=== PATIENT | male | born 1960 | race Caucasian/White ===

== ENCOUNTER → 2019-09-14 | Outpatient (CLI) | payer OTHER | END | disposition home or self-care (01) | LOC: RAH 14:02 | PROVIDERS: ATTEND Internal Medicine Cardiovascular Disease | DX: Z13.6 Encounter for screening for cardiovascular disorders (principal) | CPT/HCPCS: 75571 ==

== ENCOUNTER 2019-11-16 05:50 | Day surgery (SDC) | payer OTHER ==
[2019-11-13 12:49] LABS: BASOPHILS % (AUTO) 0.2 % (0.0-5.0); EOSINOPHILS % (AUTO) 2.4 % (0.0-8.0); HEMATOCRIT 44.7 % (42-54); LYMPHOCYTES % (AUTO) 29.3 % (21.0-51.0); MEAN CORPUSCULAR HEMOGLOBIN 29.5 pg (27.0-33.0); MEAN CORPUSCULAR HGB CONC 32.9 g/dL (32.0-36.0); MEAN CORPUSCULAR VOLUME 89.6 fL (79-99); MONOCYTES % (AUTO) 6.7 % (3.0-13.0); NEUTROPHILS % (AUTO) 61.2 % (40.0-77.0); PLATELET COUNT (AUTO) 233 K/uL (130-400); RED BLOOD CELL COUNT(AUTO) 4.99 MIL/uL (4.50-6.20); RED CELL DISTRIBUTION WIDTH 12.8 % (11.0-15.5); WHITE BLOOD COUNT (AUTO) 12.2 K/uL (4.8-10.8)
[2019-11-13 13:02] LABS: PARTIAL THROMBOPLASTIN TIME 29.2 SEC (26.3-35.5); PROTHROMBIN TIME 10.5 SEC (9.6-11.6)
[2019-11-13 13:08] LABS: POTASSIUM 4.1 mmol/L (3.5-5.1)
[2019-11-13 13:44] VITALS: BP 147/84
--- NOTE | 2019-11-13 20:20 | NUR ---
NOTIFIED DR. DELGADO OF ABNORMAL LABS , AND PT IS NOT CURRENTLY ON A BLOOD THINNER. NO NEW ORDERS OK TO PROCEED.
[2019-11-16] VITALS (18 sets, daily range): BP systolic 95–124; BP diastolic 51–86
[~2019-11-16] VITALS: Ht 185.4 cm; Wt 163.3 kg
[~2019-11-16 05:50] MED LIST: SODIUM CHLORIDE 0.9% 500ML 500 ML IV SCH
[2019-11-16] MEDS ORDERED: LISI40TA4 PO (06:53)
[2019-11-16] MEDS ORDERED: METO-391 PO (06:53)
[2019-11-16] MEDS ORDERED: APIX5TAB PO (06:53)
[2019-11-16] MEDS ORDERED: HYDR25TA PO (06:53)
[2019-11-16] MEDS ORDERED: SOTA80TA PO (06:53)
[2019-11-16] MEDS ORDERED: ATOR20TA65 PO (06:53)
[2019-11-16] MEDS ORDERED: DIPH50CA44 PO (06:53)
[2019-11-16] MEDS ORDERED: MIDAZOLAM HCL 1 MG/ML 2ML VIAL ONE (07:35)
[2019-11-16] MEDS ORDERED: FENTANYL CITRATE PF 50 MCG/1 ML 2ML VIAL ONE (07:35)
--- NOTE | 2019-11-16 08:56 | NUR ---
AWAKE ALERT ORIENTED TO TIME, PERSON, PLACE, SITUATION. DR CLAYTON AT BEDSIDE LET HIM KNOW THAT WILL NEED TO FOLLOW UP WITH DR KINGSTON FOR ABLATION. UNDERSTANDS, FAMILY AWARE, STATES HUNGRY, WILL ORDER BREAKFAST STATES DOES HAVE SOME RIB PAIN ON RIGHT SIDE ON OCCASION FROM CHRONIC COUGH THAT HE HAS HAD FOR OVER A MONTH, A FIB AT A RATE OF 90-95 Addendum: 11/16/19 at 0900 by CESAR GOLD RN RN Amended: Links added.
--- NOTE | 2019-11-16 09:26 | NUR ---
late entry - cardioversion procedure start at 07, time out sheet done no discrepancy, vital signs at 0742 112/71 pulse 94, room air 100 percent and respirations 22, 1st attempt 100 joules at 0749 am pt remained in cardioversion , 2nd attempt at 0752 100 joules shock pt remained in afib, end of procedure time 0752, pt to follow up with doctor. Recover start at 0752, Marga Knight RN to recover pt.
[2019-12-03] MEDS ORDERED: SOTA120T PO (09:35)
== END 2019-11-16 11:13 | disposition home or self-care (01) ==
LOC: DAH 05:50
PROVIDERS: ATTEND Internal Medicine Cardiovascular Disease
DX: I48.19 Other persistent atrial fibrillation (principal); I10 Essential (primary) hypertension; E78.5 Hyperlipidemia, unspecified; G47.30 Sleep apnea, unspecified; E66.01 Morbid (severe) obesity due to excess calories; Z79.01 Long term (current) use of anticoagulants; Z98.890 Other specified postprocedural states; Z79.899 Other long term (current) drug therapy; Z68.42 Body mass index [BMI] 45.0-49.9, adult; Z82.49 Family history of ischemic heart disease and other diseases of the circulatory system
CPT/HCPCS: 36415; 80048; 85025; 85610; 85730; 92960; 93005; A4216; A4221; A4222; A4223 ×3; A4606; A4663; J2250; J3010; 99152

== ENCOUNTER 2019-12-08 06:12 | Day surgery (SDC) | payer OTHER ==
[2019-12-03 09:00] LABS: BASOPHILS % (AUTO) 0.3 % (0.0-5.0); HEMATOCRIT 45.6 % (42-54); LYMPHOCYTES % (AUTO) 32.2 % (21.0-51.0); MEAN CORPUSCULAR HGB CONC 32.5 g/dL (32.0-36.0); MEAN CORPUSCULAR VOLUME 89.2 fL (79-99); MONOCYTES % (AUTO) 6.8 % (3.0-13.0); NEUTROPHILS % (AUTO) 58.3 % (40.0-77.0); PLATELET COUNT (AUTO) 239 K/uL (130-400); RED BLOOD CELL COUNT(AUTO) 5.11 MIL/uL (4.50-6.20); RED CELL DISTRIBUTION WIDTH 12.7 % (11.0-15.5); WHITE BLOOD COUNT (AUTO) 11.1 K/uL (4.8-10.8)
[2019-12-03 09:13] LABS: CREATININE 0.9 mg/dL (0.5-1.5); POTASSIUM 4.2 mmol/L (3.5-5.1)
[2019-12-03 09:30] VITALS: BP_SYST 135; BP_SYST 179; BP_DIAS 80; BP_DIAS 85
--- NOTE | 2019-12-07 12:14 | NUR ---
LABS ABNORMAL WBC REPORTED TO DR. KINGSTON. MESSAGE LEFT WITH GIACOMO, NO FURTHER ORDERS GIVEN
[2019-12-08] VITALS (13 sets, daily range): BP systolic 93–146; BP diastolic 70–92
[~2019-12-08] VITALS: Ht 185.4 cm; Wt 164.5 kg
[~2019-12-08 06:12] MED LIST changes: +APIX5TAB PO; +ATOR20TA65 PO; +DIPH50CA44 PO; +HYDR25TA PO; +LISI40TA4 PO; +METO-391 PO; +SODIUM CHLORIDE 0.9% 1000ML 1,000 ML IV SCH; -SODIUM CHLORIDE 0.9% 500ML 500 ML IV SCH; +SOTA120T PO; +SOTA80TA PO
[2019-12-08] MEDS ORDERED: LIDOCAINE PF 2% 5ML ABBOJECT ONE (08:51)
[2019-12-08] MEDS ORDERED: PROPOFOL 10 MG/ML 20ML VIAL IV ONE (08:51)
== END 2019-12-08 10:45 | disposition home or self-care (01) ==
LOC: DAH 06:12
PROVIDERS: ATTEND Internal Medicine Cardiovascular Disease
DX: I48.0 Paroxysmal atrial fibrillation (principal); I48.19 Other persistent atrial fibrillation; I10 Essential (primary) hypertension; E78.5 Hyperlipidemia, unspecified; G47.30 Sleep apnea, unspecified; E66.01 Morbid (severe) obesity due to excess calories; Z98.890 Other specified postprocedural states; Z79.01 Long term (current) use of anticoagulants; Z79.899 Other long term (current) drug therapy; Z82.49 Family history of ischemic heart disease and other diseases of the circulatory system; Z68.42 Body mass index [BMI] 45.0-49.9, adult
CPT/HCPCS: 36415; 80048; 85025; 92960; 93005 ×2; A4215; A4216; A4222; A4223 ×3; A4606; A4663; J2001; J2704

== ENCOUNTER 2020-06-02 05:50 | Day surgery (SDC) | payer OTHER ==
[2020-05-31 15:46] LABS: BASOPHILS % (AUTO) 0.2 % (0.0-5.0); EOSINOPHILS % (AUTO) 2.3 % (0.0-8.0); HEMATOCRIT 43.5 % (42-54); LYMPHOCYTES % (AUTO) 36.2 % (21.0-51.0); MEAN CORPUSCULAR HEMOGLOBIN 29.5 pg (27.0-33.0); MEAN CORPUSCULAR HGB CONC 32.6 g/dL (32.0-36.0); MEAN CORPUSCULAR VOLUME 90.2 fL (79-99); MONOCYTES % (AUTO) 6.3 % (3.0-13.0); NEUTROPHILS % (AUTO) 54.8 % (40.0-77.0); PLATELET COUNT (AUTO) 236 K/uL (130-400); RED BLOOD CELL COUNT(AUTO) 4.82 MIL/uL (4.50-6.20); RED CELL DISTRIBUTION WIDTH 13.1 % (11.0-15.5); WHITE BLOOD COUNT (AUTO) 9.9 K/uL (4.8-10.8)
[2020-05-31 15:58] LABS: CREATININE 1.2 mg/dL (0.5-1.5); POTASSIUM 3.8 mmol/L (3.5-5.1)
[2020-05-31 16:02] LABS: INR 0.95 (0.85-1.15); PROTHROMBIN TIME 10.3 SEC (9.6-11.6)
[2020-06-01 08:56] VITALS: BP 149/72
[~2020-06-02] VITALS: Ht 182.9 cm; Wt 166.1 kg
[~2020-06-02 05:50] MED LIST changes: -DIPH50CA44 PO; +PROP325C5 PO; -SODIUM CHLORIDE 0.9% 1000ML 1,000 ML IV SCH; +SODIUM CHLORIDE 0.9% 500ML 500 ML IV SCH; -SOTA120T PO; -SOTA80TA PO; +magnesium PO
--- NOTE | 2020-06-02 06:15 | NUR ---
PT PT HERE FOR PROCEDURE. DENIES ANY PAIN, SOB AT THIS TIME. EKG RHYTHM IS AFIB
[2020-06-02] MEDS ORDERED: SODIUM CHLORIDE 0.9% 1000ML 1,000 ML IV ONE (06:45)
[2020-06-02 07:40] VITALS: BP 141/78
--- NOTE | 2020-06-02 08:00 | NUR ---
DR. VASHTI KINGSTON AND WOO, DERRICK BUILDER HERE FOR CARDIOVERSION. TIME OUT PERFORMED. 1 SHOCK ADMINISTERED AT 200 JOULES. UNSUCCESSFUL. SECOND SHOCK ADMINISTERED AT 360 JOULES. SUCCESSFUL. PT TOLERATED PROCEDURE WELL.
[2020-06-02] MEDS ORDERED: SUCCINYLCHOLINE CHLORIDE 20 MG/ML 10 ML VIAL ONE (08:02)
[2020-06-02] MEDS ORDERED: PROPOFOL 10 MG/ML 20ML VIAL IV ONE (08:02)
[2020-06-02] MEDS ORDERED: LIDOCAINE PF 2% 5ML ABBOJECT ONE (08:02)
[2020-06-02] MEDS ORDERED: PHENYLEPHRINE HCL 10 MG/ML 1ML VIAL IV ONE (08:10)
[2020-06-02 08:51] VITALS: BP 112/68
[2020-06-02 09:15] VITALS: BP 117/77
--- NOTE | 2020-06-02 09:25 | NUR ---
DC PT DISCHARGED VIA WHEELCHAIR TO DAUGHTER.
== END 2020-06-02 09:25 | disposition home or self-care (01) ==
LOC: DAH 05:50
PROVIDERS: ATTEND Internal Medicine Cardiovascular Disease
DX: I48.0 Paroxysmal atrial fibrillation (principal); I49.3 Ventricular premature depolarization; G47.30 Sleep apnea, unspecified; I10 Essential (primary) hypertension; E78.5 Hyperlipidemia, unspecified; Z79.01 Long term (current) use of anticoagulants; Z11.59 Encounter for screening for other viral diseases; Z79.02 Long term (current) use of antithrombotics/antiplatelets
CPT/HCPCS: 36415; 80048; 85025; 85610; 85730; 87426; 92960; 93005; A4215; A4216; A4221; A4222; A4223 ×3; A4606; A4663; J2001; J2370; J2704; J7030; U0003; J0330

== ENCOUNTER 2020-08-08 06:10 | Day surgery (SDC) | payer OTHER ==
[2020-08-04 09:59] VITALS: BP 162/73
[2020-08-04 16:32] LABS: BASOPHILS % (AUTO) 0.2 % (0.0-5.0); EOSINOPHILS % (AUTO) 3.5 % (0.0-8.0); HEMATOCRIT 43.2 % (42-54); MEAN CORPUSCULAR HEMOGLOBIN 29.2 pg (27.0-33.0); MEAN CORPUSCULAR HGB CONC 33.1 g/dL (32.0-36.0); MEAN CORPUSCULAR VOLUME 88.3 fL (79-99); PLATELET COUNT (AUTO) 243 K/uL (130-400); RED BLOOD CELL COUNT(AUTO) 4.89 MIL/uL (4.50-6.20); RED CELL DISTRIBUTION WIDTH 12.8 % (11.0-15.5); WHITE BLOOD COUNT (AUTO) 10.1 K/uL (4.8-10.8)
[2020-08-04 16:41] LABS: POTASSIUM 3.8 mmol/L (3.5-5.1)
[~2020-08-08] VITALS: Ht 188 cm; Wt 168.7 kg
[2020-08-08] VITALS (15 sets, daily range): BP systolic 95–154; BP diastolic 50–84
[~2020-08-08 06:10] MED LIST changes: -SODIUM CHLORIDE 0.9% 500ML 500 ML IV SCH
[2020-08-08] MEDS ORDERED: SODIUM CHLORIDE 0.9% 1000ML 1,000 ML IV ONE (07:12)
[2020-08-08] MEDS ORDERED: ALLO100T PO (07:43)
[2020-08-08] MEDS ORDERED: PROPOFOL 10 MG/ML 20ML VIAL IV ONE (09:30)
--- NOTE | 2020-08-08 09:38 | NUR ---
SEDATION: DR. JARVIS HERE AND STARTED ANESTHESIA WITH PROPOFOL.
--- NOTE | 2020-08-08 09:45 | NUR ---
CARDIOVERSION: DR. KINGSTON STARTED CARDIOVERSION AT 200 EMILIA. PT REMAINED AT A- FIB.
--- NOTE | 2020-08-08 09:47 | NUR ---
SEDATION: DR. JARVIS - ANESTHESIOLOGIST CONTINUES MEDICATING WITH PROPOFOL.
--- NOTE | 2020-08-08 09:48 | NUR ---
CARDIOVERSION: DR. KINGSTON CONTINUED CARDIOVERSION WITH 360 EMILIA. PT AT SINUS RHYTHM.
== END 2020-08-08 11:00 | disposition home or self-care (01) ==
LOC: DAH 06:10
PROVIDERS: ATTEND Internal Medicine Cardiovascular Disease
DX: I48.0 Paroxysmal atrial fibrillation (principal); Z20.828 Contact with and (suspected) exposure to other viral communicable diseases
CPT/HCPCS: 36415; 80048; 85025; 92960; 93005; A4215; A4216; A4221; A4222; A4223 ×2; A4606; A4615; A4663; C9803; J2704; J7030; U0003

== ENCOUNTER → 2020-08-24 | Outpatient (CLI) | payer OTHER ==
[~2020-08-24] MED LIST changes: +ALLO100T PO; +IOHEXOL 350 MG/ML 100ML INFUS..BTL IV ONE; +IOHEXOL-350 50ML VIAL IV ONE; -magnesium PO
== END | disposition home or self-care (01) ==
LOC: RAH 06:59
PROVIDERS: ATTEND Internal Medicine Cardiovascular Disease
DX: I48.0 Paroxysmal atrial fibrillation (principal); R18.8 Other ascites; K76.0 Fatty (change of) liver, not elsewhere classified
CPT/HCPCS: 71275; Q9967 ×2

== ENCOUNTER 2020-09-01 06:59 | Observation (INO) | payer OTHER ==
[2020-08-29 11:40] LABS: BASOPHILS % (AUTO) 0.3 % (0.0-5.0); EOSINOPHILS % (AUTO) 3.1 % (0.0-8.0); HEMATOCRIT 44.5 % (42-54); LYMPHOCYTES % (AUTO) 36.8 % (21.0-51.0); MEAN CORPUSCULAR HEMOGLOBIN 29.1 pg (27.0-33.0); MEAN CORPUSCULAR HGB CONC 32.8 g/dL (32.0-36.0); MEAN CORPUSCULAR VOLUME 88.8 fL (79-99); NEUTROPHILS % (AUTO) 52.4 % (40.0-77.0); PLATELET COUNT (AUTO) 219 K/uL (130-400); RED BLOOD CELL COUNT(AUTO) 5.01 MIL/uL (4.50-6.20); RED CELL DISTRIBUTION WIDTH 12.6 % (11.0-15.5); WHITE BLOOD COUNT (AUTO) 9.3 K/uL (4.8-10.8)
[2020-08-29 11:49] LABS: POTASSIUM 3.7 mmol/L (3.5-5.1)
[2020-08-29 12:22] LABS: INR 0.97 (0.85-1.15); PARTIAL THROMBOPLASTIN TIME 28.8 SEC (26.3-35.5); PROTHROMBIN TIME 10.5 SEC (9.6-11.6)
[2020-08-31 10:00] VITALS: BP 156/76
[~2020-09-01] VITALS: Ht 188 cm; Wt 166.8 kg
[2020-09-01] VITALS (22 sets, daily range): BP systolic 99–136; BP diastolic 44–78
[~2020-09-01 06:59] MED LIST changes: -IOHEXOL 350 MG/ML 100ML INFUS..BTL IV ONE; -IOHEXOL-350 50ML VIAL IV ONE
[2020-09-01] MEDS ORDERED: SODIUM CHLORIDE 0.9% 1000ML 1,000 ML IV ONE (07:53)
--- NOTE | 2020-09-01 08:29 | NUR ---
REDNESS NOTED LOWER ABDOMEN FOLD AND BILATERAL GROIN, SKIN INTACT Addendum: 09/01/20 at 0830 by MIKE MARTI RN RN Amended: Links added.
[2020-09-01] MEDS ORDERED: HEPARIN SODIUM 1000UNIT/ML 10ML VIAL ONE ×2 (08:45→12:37)
[2020-09-01] MEDS ORDERED: IODIXANOL 320 MG/ML 100 ML VIAL ONE (08:45)
[2020-09-01] MEDS ORDERED: LIDOCAINE HCL 2% 20ML ONE (08:45)
[2020-09-01] MEDS ORDERED: METOPROLOL TARTRATE 1 MG/ML 5ML VIAL IV ONE (09:02)
[2020-09-01] MEDS ORDERED: MIDAZOLAM HCL 1 MG/ML 2ML VIAL ONE ×2 (09:03→09:15)
[2020-09-01] MEDS ORDERED: ONDANSETRON HCL 4 MG/2 ML VIAL ONE (09:15)
[2020-09-01] MEDS ORDERED: LIDOCAINE PF 2% 5ML ABBOJECT ONE (09:15)
[2020-09-01] MEDS ORDERED: DEXAMETHASONE SOD PHOSPHATE 10MG/ML 1ML VIAL ONE (09:15)
[2020-09-01] MEDS ORDERED: PROPOFOL 10 MG/ML 20ML VIAL IV ONE (09:15)
[2020-09-01] MEDS ORDERED: FENTANYL CITRATE PF 50 MCG/1 ML 2ML VIAL ONE ×2 (09:16→12:52)
[2020-09-01] MEDS ORDERED: ROCURONIUM 10MG/1ML SYR 10 MG/ML ML ONE (09:16)
[2020-09-01] MEDS ORDERED: EPHEDRINE SULFATE 50 MG/ML AMPULE ONE (09:16)
[2020-09-01] MEDS ORDERED: PHENYLEPHRINE HCL 10 MG/ML 1ML VIAL IV ONE ×2 (09:16→12:34)
[2020-09-01] MEDS ORDERED: ISOPROTERENOL HCL 0.2 MG/ML AMP/VIAL/BAG ONE (12:38)
[2020-09-01 13:21] LABS: ABG BASE EXCESS -3.2 mmol/L (-2.0-3.0); ABG HCO3 24.4 mmol/L (21.0-28.0); ABG OXYGEN SATURATION 97.3 % (95.0-99.0); ABG PCO2 54 mmHg (35-48)
[2020-09-01 13:24] LABS: ABG HCO3 24.4 mmol/L (21.0-28.0); ABG OXYGEN SATURATION 97.4 % (95.0-99.0); ABG PCO2 53 mmHg (35-48)
[2020-09-01 13:29] LABS: ABG BASE EXCESS -3.7 mmol/L (-2.0-3.0); ABG HCO3 23.8 mmol/L (21.0-28.0); ABG OXYGEN SATURATION 97.8 % (95.0-99.0); ABG PCO2 52 mmHg (35-48)
[2020-09-01] MEDS ORDERED: PROTAMINE SULFATE 10 MG/ML 25ML VIAL IV ONE (13:46)
[2020-09-01] MEDS ORDERED: GLYCOPYRROLATE 1 MG/5 ML SYRINGE ONE (14:28)
[2020-09-01] MEDS ORDERED: NEOSTIGMINE 5MG/5ML SYR IV ONE (14:28)
[2020-09-01] MEDS ORDERED: MORPHINE SULFATE 2 MG/ML 1ML SYG ONE (16:20)
[2020-09-01] MEDS ORDERED: MORPHINE SULFATE 2 MG/ML 1ML SYG IVP ONE (16:30)
[2020-09-01] MEDS: APIXABAN 5 MG TABLET PO SCH (22:06)
[2020-09-01] MEDS: METOPROLOL SUCCINATE 50 MG TAB.SR.24H PO SCH (22:06)
[2020-09-01] MEDS: PROPAFENONE HCL 425 MG PO SCH (22:07)
[2020-09-02] VITALS: BP 107/47
[2020-09-02 04:00] VITALS: BP 114/57
[2020-09-02 04:52] LABS: HEMATOCRIT 43.2 % (42-54); MEAN CORPUSCULAR HEMOGLOBIN 29.3 pg (27.0-33.0); MEAN CORPUSCULAR HGB CONC 32.4 g/dL (32.0-36.0); MEAN CORPUSCULAR VOLUME 90.4 fL (79-99); RED BLOOD CELL COUNT(AUTO) 4.78 MIL/uL (4.50-6.20); RED CELL DISTRIBUTION WIDTH 12.6 % (11.0-15.5); WHITE BLOOD COUNT (AUTO) 15.1 K/uL (4.8-10.8)
[2020-09-02 05:08] LABS: ALBUMIN 3.2 g/dL (3.5-5.0); BILIRUBIN,TOTAL 0.7 mg/dL (0.2-1.0); CREATININE 1.5 mg/dL (0.5-1.5); POTASSIUM 4.6 mmol/L (3.5-5.1); TOTAL PROTEIN, SERUM 6.2 g/dL (6.0-8.3)
[2020-09-02] MEDS: METOPROLOL SUCCINATE 50 MG TAB.SR.24H PO SCH (07:59)
[2020-09-02] MEDS: APIXABAN 5 MG TABLET PO SCH (07:59)
[2020-09-02] MEDS: PROPAFENONE HCL 425 MG PO SCH (08:05)
[2020-09-02 08:11] VITALS: BP 130/58
[2020-09-02] MEDS ORDERED: HYDROCHLOROTHIAZIDE 25 MG TABLET PO SCH (09:00)
[2020-09-02] MEDS ORDERED: LISINOPRIL 40 MG TABLET PO SCH (09:00)
[2020-09-02] MEDS ORDERED: ATORVASTATIN CALCIUM 20 MG TABLET PO SCH (09:00)
[2020-09-02] MEDS ORDERED: SUCRALFATE 1 GM TABLET PO SCH (10:45)
[2020-09-02] MEDS ORDERED: PANTOPRAZOLE SODIUM 40 MG TABLET.DR PO SCH (10:45)
[2020-09-02] MEDS ORDERED: PANT40TA55 PO (10:47)
[2020-09-02] MEDS ORDERED: CARAL PO (10:47)
[2020-09-02 11:59] VITALS: BP 121/54
--- NOTE | 2020-09-02 12:07 | NUR ---
Discharge Patient given discharge instructions regarding follow ups, prescriptions, and medications to continue taking. Patient verbalized understanding regarding plan of care all questions answered.
== END 2020-09-02 12:15 | disposition home or self-care (01) ==
LOC: DAH 06:59 → DAHIP 07:00 → DAH 07:00 → 4CH 16:16
PROVIDERS: ADMIT Internal Medicine; ATTEND Internal Medicine
DX: I48.0 Paroxysmal atrial fibrillation (principal); Z20.828 Contact with and (suspected) exposure to other viral communicable diseases; I25.10 Atherosclerotic heart disease of native coronary artery without angina pectoris; I10 Essential (primary) hypertension; E78.5 Hyperlipidemia, unspecified; E66.01 Morbid (severe) obesity due to excess calories; Z87.891 Personal history of nicotine dependence; Z96.659 Presence of unspecified artificial knee joint; Z79.01 Long term (current) use of anticoagulants; Z79.899 Other long term (current) drug therapy; Z68.42 Body mass index [BMI] 45.0-49.9, adult
CPT/HCPCS: 36415 ×2; 80048; 80053; 82435; 82803; 82947; 83605; 84132; 84295; 85018; 85025; 85027; 85610; 85730; 93306; 93308; 93356; 93613; 93622; 93656; 93662; 96360; 96361 ×2; A4215 ×2; A4216; A4221; A4222; A4223 ×3; A4344; A4606; A4649 ×2; A4663; C1730; C1731; C1732; C1893 ×2; C1894 ×4; C9803; G0378 ×21; J1100; J1644 ×3; J2001; J2250 ×2; J2370 ×2; J2405; J2704; J2710; J2720; J3010 ×2; J3490 ×5; J7030; U0003; 93005; Q9967

== ENCOUNTER 2021-10-27 09:03 | Day surgery (SDC) | payer OTHER ==
[2021-10-23 13:58] LABS: BASOPHILS % (AUTO) 0.3 % (0.0-5.0); EOSINOPHILS % (AUTO) 2.5 % (0.0-8.0); LYMPHOCYTES % (AUTO) 31.8 % (21.0-51.0); MEAN CORPUSCULAR HEMOGLOBIN 29.1 pg (27.0-33.0); MEAN CORPUSCULAR HGB CONC 33.6 g/dL (32.0-36.0); MEAN CORPUSCULAR VOLUME 86.6 fL (79-99); MONOCYTES % (AUTO) 6.2 % (3.0-13.0); NEUTROPHILS % (AUTO) 58.9 % (40.0-77.0); PLATELET COUNT (AUTO) 219 K/uL (130-400); RED BLOOD CELL COUNT(AUTO) 4.85 MIL/uL (4.50-6.20); RED CELL DISTRIBUTION WIDTH 12.3 % (11.0-15.5); WHITE BLOOD COUNT (AUTO) 10.9 K/uL (4.8-10.8)
[2021-10-23 14:11] LABS: INR 1.05 (0.85-1.15); PROTHROMBIN TIME 11.4 SEC (9.6-11.6)
[2021-10-23 14:12] LABS: PARTIAL THROMBOPLASTIN TIME 30.9 SEC (26.3-35.5)
[2021-10-23 14:28] LABS: CREATININE 1.1 mg/dL (0.5-1.5); MAGNESIUM 1.4 mg/dL (1.80-2.40); POTASSIUM 3.4 mmol/L (3.5-5.1); THYROID STIMULATING HORMONE 2.86 uIU/mL (0.36-3.74)
[2021-10-26 10:02] VITALS: BP 156/78
[~2021-10-27] VITALS: Ht 188 cm; Wt 161.8 kg
[~2021-10-27 09:03] MED LIST changes: +0.9% NACL 500ML IV.SOLN 500 ML IV SCH; -ALLO100T PO; +AMLO1CAP87 PO; -ATOR20TA65 PO; +ATOR40TA69 PO; -LISI40TA4 PO; +LISI40TA9 PO; +METO-409 PO; +SEMA1PEN3 SQ; +TOPIRAMATE PO
[2021-10-27 09:30] VITALS: BP 143/71
[2021-10-27] MEDS ORDERED: LIDOCAINE PF 100MG/5ML (2%) SYRINGE 5ML ONE (12:18)
[2021-10-27] MEDS ORDERED: PHENYLEPHRINE HCL 10 MG/ML 1ML VIAL IV ONE (12:18)
[2021-10-27] MEDS ORDERED: PROPOFOL 10 MG/ML 20ML VIAL IV ONE (12:18)
[2021-10-27 13:15] VITALS: BP 128/72
[2021-10-27] MEDS ORDERED: 0.9%NACL 1000ML 1,000 ML IV ONE (15:17)
== END 2021-10-27 13:40 | disposition home or self-care (01) ==
LOC: SUH 09:03 → DAH 09:03 → SUH 13:40
PROVIDERS: ATTEND Internal Medicine Cardiovascular Disease
DX: I48.19 Other persistent atrial fibrillation (principal); I10 Essential (primary) hypertension; I25.10 Atherosclerotic heart disease of native coronary artery without angina pectoris; E78.5 Hyperlipidemia, unspecified; Z79.01 Long term (current) use of anticoagulants; Z79.82 Long term (current) use of aspirin; Z79.899 Other long term (current) drug therapy
CPT/HCPCS: 36415 ×2; 80048; 82948; 83735; 84132; 84443; 85025; 85610; 85730; 92960; 93005; A4215; A4216; A4221; A4222; A4223 ×3; A4663; J2001; J2370; J2704; J7030; J7040

== ENCOUNTER 2021-12-18 06:49 | Day surgery (SDC) | payer OTHER ==
[2021-12-14 13:30] LABS: BASOPHILS % (AUTO) 0.3 % (0.0-5.0); EOSINOPHILS % (AUTO) 1.6 % (0.0-8.0); HEMATOCRIT 47.7 % (42-54); LYMPHOCYTES % (AUTO) 35.5 % (21.0-51.0); MEAN CORPUSCULAR HEMOGLOBIN 29.4 pg (27.0-33.0); MEAN CORPUSCULAR HGB CONC 33.3 g/dL (32.0-36.0); MEAN CORPUSCULAR VOLUME 88.2 fL (79-99); MONOCYTES % (AUTO) 7.4 % (3.0-13.0); PLATELET COUNT (AUTO) 274 K/uL (130-400); RED BLOOD CELL COUNT(AUTO) 5.41 MIL/uL (4.50-6.20); RED CELL DISTRIBUTION WIDTH 12.4 % (11.0-15.5); WHITE BLOOD COUNT (AUTO) 12.2 K/uL (4.8-10.8)
[2021-12-14 13:42] LABS: INR 1.1 (0.85-1.15); PROTHROMBIN TIME 11.9 SEC (9.6-11.6)
[2021-12-14 13:44] LABS: PARTIAL THROMBOPLASTIN TIME 32.2 SEC (26.3-35.5)
[2021-12-14 13:46] LABS: CREATININE 1.3 mg/dL (0.5-1.5); POTASSIUM 3.5 mmol/L (3.5-5.1)
[2021-12-15 12:41] VITALS: BP 141/69
[~2021-12-18] VITALS: Ht 182.9 cm; Wt 158.7 kg
[2021-12-18] VITALS (14 sets, daily range): BP systolic 135–169; BP diastolic 73–93
[~2021-12-18 06:49] MED LIST changes: -0.9% NACL 500ML IV.SOLN 500 ML IV SCH; -METO-391 PO; -PROP325C5 PO
[2021-12-18 07:23] LABS: BASOPHILS % (AUTO) 0.3 % (0.0-5.0); EOSINOPHILS % (AUTO) 2.4 % (0.0-8.0); HEMATOCRIT 44.5 % (42-54); MEAN CORPUSCULAR HEMOGLOBIN 28.8 pg (27.0-33.0); MEAN CORPUSCULAR VOLUME 87.3 fL (79-99); MONOCYTES % (AUTO) 5.2 % (3.0-13.0); NEUTROPHILS % (AUTO) 52.8 % (40.0-77.0); PLATELET COUNT (AUTO) 222 K/uL (130-400); RED CELL DISTRIBUTION WIDTH 12.2 % (11.0-15.5); WHITE BLOOD COUNT (AUTO) 10.5 K/uL (4.8-10.8)
[2021-12-18] MEDS ORDERED: 0.9%NACL 1000ML 1,000 ML IV SCH (08:00)
[2021-12-18] MEDS ORDERED: PROPOFOL 10 MG/ML 20ML VIAL IV ONE (08:03)
[2021-12-18] MEDS ORDERED: SUCCINYLCHOLINE 200MG/10ML SYR ONE (08:03)
== END 2021-12-18 10:01 | disposition home or self-care (01) ==
LOC: CLH 06:49 → DAH 06:49 → CLH 10:01
PROVIDERS: ATTEND Internal Medicine Cardiovascular Disease
DX: I48.19 Other persistent atrial fibrillation (principal); Z20.822 Contact with and (suspected) exposure to COVID-19; I10 Essential (primary) hypertension; E11.9 Type 2 diabetes mellitus without complications; E66.01 Morbid (severe) obesity due to excess calories; G47.33 Obstructive sleep apnea (adult) (pediatric); E78.5 Hyperlipidemia, unspecified; Z98.890 Other specified postprocedural states; Z79.82 Long term (current) use of aspirin; Z87.891 Personal history of nicotine dependence; Z68.42 Body mass index [BMI] 45.0-49.9, adult; Z79.01 Long term (current) use of anticoagulants; Z79.899 Other long term (current) drug therapy
CPT/HCPCS: 36415 ×2; 71045; 80048; 82948; 85025 ×2; 85610; 85730; 87635; 92960; 93005 ×2; A4215; A4216; A4221; A4222; A4223 ×3; A4606; A4663; A7002; C9803; J0330; J2704; J7030 ×2

== ENCOUNTER 2022-05-17 08:13 | Observation (INO) | payer OTHER ==
[2022-05-15 15:33] LABS: BASOPHILS % (AUTO) 0.2 % (0.0-5.0); EOSINOPHILS % (AUTO) 1.2 % (0.0-8.0); HEMATOCRIT 45.8 % (42-54); LYMPHOCYTES % (AUTO) 36.5 % (21.0-51.0); MEAN CORPUSCULAR HEMOGLOBIN 28.7 pg (27.0-33.0); MEAN CORPUSCULAR HGB CONC 33.2 g/dL (32.0-36.0); MEAN CORPUSCULAR VOLUME 86.6 fL (79-99); MONOCYTES % (AUTO) 5.5 % (3.0-13.0); NEUTROPHILS % (AUTO) 56.2 % (40.0-77.0); PLATELET COUNT (AUTO) 233 K/uL (130-400); RED BLOOD CELL COUNT(AUTO) 5.29 MIL/uL (4.50-6.20); RED CELL DISTRIBUTION WIDTH 12.2 % (11.0-15.5); WHITE BLOOD COUNT (AUTO) 12.8 K/uL (4.8-10.8)
[2022-05-15 15:41] LABS: CREATININE 0.9 mg/dL (0.5-1.5); POTASSIUM 3.6 mmol/L (3.5-5.1)
[2022-05-15 15:42] LABS: INR 0.96 (0.85-1.15); PROTHROMBIN TIME 10.5 SEC (9.6-11.6)
[2022-05-16 09:39] VITALS: BP 146/72
[2022-05-17] VITALS (25 sets, daily range): BP systolic 133–194; BP diastolic 64–99
[~2022-05-17] VITALS: Ht 185.4 cm; Wt 156.0 kg
[~2022-05-17 08:13] MED LIST changes: +0.9%NACL 1000ML 1,000 ML IV SCH; +AMLO-257 PO; -AMLO1CAP87 PO; -ATOR40TA69 PO; +ATOR40TA71 PO; +DRON400T7 PO; -HYDR25TA PO; -METO-409 PO; +METO50TA18 PO; +OMEP20TA20 PO; +TOPI25TA48 PO; -TOPIRAMATE PO
[2022-05-17 08:33] LABS: BASOPHILS % (AUTO) 0.2 % (0.0-5.0); EOSINOPHILS % (AUTO) 1.9 % (0.0-8.0); HEMATOCRIT 45.8 % (42-54); LYMPHOCYTES % (AUTO) 40.1 % (21.0-51.0); MEAN CORPUSCULAR HEMOGLOBIN 29.7 pg (27.0-33.0); MEAN CORPUSCULAR HGB CONC 34.1 g/dL (32.0-36.0); MEAN CORPUSCULAR VOLUME 87.2 fL (79-99); MONOCYTES % (AUTO) 8.1 % (3.0-13.0); NEUTROPHILS % (AUTO) 49.4 % (40.0-77.0); PLATELET COUNT (AUTO) 238 K/uL (130-400); RED BLOOD CELL COUNT(AUTO) 5.25 MIL/uL (4.50-6.20); RED CELL DISTRIBUTION WIDTH 12.2 % (11.0-15.5); WHITE BLOOD COUNT (AUTO) 12.1 K/uL (4.8-10.8)
[2022-05-17] MEDS ORDERED: HEPARIN 10,000 UNIT/10ML (1,000 UNIT/ML) VIAL ONE ×2 (11:11→13:29)
[2022-05-17] MEDS ORDERED: LIDOCAINE HCL 400MG/20ML VIAL ONE ×2 (11:12)
[2022-05-17] MEDS ORDERED: PROPOFOL 10 MG/ML 20ML VIAL IV ONE (11:39)
[2022-05-17] MEDS ORDERED: FENTANYL CITRATE PF 50 MCG/1 ML 2ML VIAL ONE ×2 (11:40→14:45)
[2022-05-17] MEDS ORDERED: ROCURONIUM 10MG/1ML SYR 10 MG/ML ML ONE (11:42)
[2022-05-17] MEDS ORDERED: EPHEDRINE SULFATE 50 MG/ML AMPULE ONE (11:42)
[2022-05-17] MEDS ORDERED: MIDAZOLAM HCL 1 MG/ML 2ML VIAL ONE (11:59)
[2022-05-17] MEDS ORDERED: ISOPROTERENOL HCL 0.2 MG/ML AMP/VIAL/BAG ONE (15:01)
[2022-05-17] MEDS ORDERED: PROTAMINE SULFATE 10 MG/ML 25ML VIAL IV ONE (15:35)
[2022-05-17] MEDS ORDERED: ONDANSETRON 4MG INJ ONE (15:55)
[2022-05-17] MEDS ORDERED: NEOSTIGMINE 5MG/5ML SYR IV ONE (16:31)
[2022-05-17] MEDS ORDERED: TRAMADOL HCL 50 MG TABLET PO PRN (18:00)
[2022-05-17] MEDS ORDERED: ACETAMINOPHEN 500 MG TABLET PO PRN (18:00)
[2022-05-17] MEDS ORDERED: ACETAMINOPHEN 325 MG TAB ONE (18:06)
[2022-05-17] MEDS ORDERED: AMLODIPINE 5 MG TAB PO SCH (21:00)
[2022-05-17] MEDS ORDERED: ATORVASTATIN 40 MG TABLET PO SCH (21:00)
[2022-05-17] MEDS: METOPROLOL TARTRATE 50 MG TAB PO SCH (21:30)
[2022-05-17] MEDS: DRONEDARONE HYDROCHLORIDE 400 MG TABLET PO SCH (21:31)
[2022-05-17] MEDS: SUCRALFATE 1 GM TABLET PO SCH (21:31)
[2022-05-17] MEDS: APIXABAN 5 MG TABLET PO SCH (21:31)
[2022-05-17] MEDS: TOPIRAMATE 25 MG TABLET PO SCH (23:12)
[2022-05-18] MEDS ORDERED: PANTOPRAZOLE 40 MG TAB DR PO SCH (07:30)
[2022-05-18 08:18] VITALS: BP 133/80
[2022-05-18] MEDS ORDERED: LISINOPRIL 40 MG TABLET PO SCH (09:00)
[2022-05-18] MEDS: DRONEDARONE HYDROCHLORIDE 400 MG TABLET PO SCH (11:21)
[2022-05-18] MEDS: APIXABAN 5 MG TABLET PO SCH (11:22)
[2022-05-18] MEDS: SUCRALFATE 1 GM TABLET PO SCH ×2 (11:22→11:30)
[2022-05-18] MEDS: METOPROLOL TARTRATE 50 MG TAB PO SCH (11:22)
[2022-05-18] MEDS: TOPIRAMATE 25 MG TABLET PO SCH (12:18)
[2022-05-18 12:27] VITALS: BP 147/74
[2022-05-18] MEDS ORDERED: CARAL PO (12:29)
[2022-05-20] MEDS ORDERED: SEMAGLUTIDE 1 MG SQ SCH (09:00)
[2022-05-24] MEDS ORDERED: SEMAGLUTIDE 1 MG SQ SCH (09:00)
== END 2022-05-18 14:15 | disposition home or self-care (01) ==
LOC: DAH 08:13 → DAHIP 08:14 → 2AH 18:34
PROVIDERS: ADMIT Internal Medicine Cardiovascular Disease; ATTEND Internal Medicine Cardiovascular Disease
DX: I48.0 Paroxysmal atrial fibrillation (principal); I10 Essential (primary) hypertension; E78.5 Hyperlipidemia, unspecified; I25.10 Atherosclerotic heart disease of native coronary artery without angina pectoris; Z79.01 Long term (current) use of anticoagulants; Z79.82 Long term (current) use of aspirin; Z96.659 Presence of unspecified artificial knee joint; Z79.899 Other long term (current) drug therapy; Z98.890 Other specified postprocedural states
CPT/HCPCS: 80048; 85025 ×2; 85610; 85730; 36415 ×2; 93005 ×3; 93622; 93623; 93656; A4344; C1894 ×3; C1893; A4215 ×2; C1731; A4649 ×2; C1732; C1730; C1760; G0378 ×22; J3010 ×2; J3490 ×3; J2710; J7030; J2720; J1644 ×3; J2250; J2704; J2405; A4223 ×3; A4222; A4221; A4663; A4216; A4606

== ENCOUNTER 2023-01-15 10:27 | Emergency (ER) | payer OTHER ==
[~2023-01-15] VITALS: Ht 185.4 cm; Wt 154.2 kg
[~2023-01-15 10:27] MED LIST changes: -0.9%NACL 1000ML 1,000 ML IV SCH; +CARAL PO
[2023-01-15 11:12] LABS: BASOPHILS % (AUTO) 0.3 % (0.0-5.0); HEMATOCRIT 45.1 % (42-54); LYMPHOCYTES % (AUTO) 41.2 % (21.0-51.0); MEAN CORPUSCULAR HEMOGLOBIN 29.4 pg (27.0-33.0); MEAN CORPUSCULAR HGB CONC 33.3 g/dL (32.0-36.0); MEAN CORPUSCULAR VOLUME 88.4 fL (79-99); NEUTROPHILS % (AUTO) 50.2 % (40.0-77.0); PLATELET COUNT (AUTO) 207 K/uL (130-400); RED CELL DISTRIBUTION WIDTH 12.2 % (11.0-15.5)
[2023-01-15 11:20] LABS: POTASSIUM 4.1 mmol/L (3.5-5.1)
[2023-01-15 11:25] LABS: MAGNESIUM 1.8 mg/dL (1.80-2.40); TOTAL PROTEIN, SERUM 6.9 g/dL (6.0-8.3)
[2023-01-15 11:33] LABS: INR 0.99 (0.85-1.15); PROTHROMBIN TIME 10.8 SEC (9.6-11.6)
[2023-01-15 11:34] LABS: PARTIAL THROMBOPLASTIN TIME 31.7 SEC (26.3-35.5)
[2023-01-15] MEDS: ASPIRIN 81MG CHEW TAB PO ONE ×2 (12:45→12:48)
[2023-01-15 14:16] VITALS: BP 134/84
== END 2023-01-15 14:18 | disposition home or self-care (01) ==
LOC: EDH 10:27
DX: I48.91 Unspecified atrial fibrillation (principal); I25.10 Atherosclerotic heart disease of native coronary artery without angina pectoris; E66.01 Morbid (severe) obesity due to excess calories; Z68.42 Body mass index [BMI] 45.0-49.9, adult; I10 Essential (primary) hypertension; E78.00 Pure hypercholesterolemia, unspecified; Z79.899 Other long term (current) drug therapy; Z98.890 Other specified postprocedural states
CPT/HCPCS: 36415; 71045; 80053; 83735; 83880; 84484; 85025; 85610; 85730; 93005

== ENCOUNTER 2023-01-25 07:35 | Day surgery (SDC) | payer OTHER ==
[2023-01-25] VITALS (13 sets, daily range): BP systolic 121–150; BP diastolic 56–86
[~2023-01-25] VITALS: Ht 185.4 cm; Wt 157.7 kg
[2023-01-25] MEDS ORDERED: ALLO100T PO (08:14)
[2023-01-25] MEDS ORDERED: METF-444 PO (08:14)
[2023-01-25] MEDS ORDERED: AMLO-257 PO (08:14)
[2023-01-25] MEDS ORDERED: METO-391 PO (08:14)
[2023-01-25] MEDS ORDERED: 0.9%NACL 1000ML 1,000 ML IV SCH (09:30)
== END 2023-01-25 10:45 | disposition home or self-care (01) ==
LOC: DAH 07:35
PROVIDERS: ATTEND Internal Medicine Cardiovascular Disease
DX: I48.19 Other persistent atrial fibrillation (principal); Z20.822 Contact with and (suspected) exposure to COVID-19; I10 Essential (primary) hypertension; I25.10 Atherosclerotic heart disease of native coronary artery without angina pectoris; E78.5 Hyperlipidemia, unspecified; G47.33 Obstructive sleep apnea (adult) (pediatric); Z79.01 Long term (current) use of anticoagulants; Z79.899 Other long term (current) drug therapy; Z98.890 Other specified postprocedural states; Z87.891 Personal history of nicotine dependence
CPT/HCPCS: 92960; 87426; 82948; 93005 ×2; A4215; A4222; A4221; A4663; A4216; A4606; A4223 ×3

== ENCOUNTER 2023-10-23 09:04 | Emergency (ER) | payer OTHER ==
[~2023-10-23] VITALS: Ht 188 cm; Wt 145.1 kg
[~2023-10-23 09:04] MED LIST changes: +ALLO100T PO; -CARAL PO; -LISI40TA9 PO; +METF-444 PO; +METO-391 PO; -METO50TA18 PO; -OMEP20TA20 PO; -SEMA1PEN3 SQ
[2023-10-23 09:06] VITALS: BP 143/72
[2023-10-23] MEDS ORDERED: FAMOTIDINE 20MG VIAL IV ONE (10:00)
[2023-10-23] MEDS ORDERED: KETOROLAC 30MG VIAL (30MG/ML) IVP ONE (10:00)
[2023-10-23 10:09] LABS: APPEARANCE,URINE CLEAR (CLEAR); BILIRUBIN,URINE NEGATIVE (NEGATIVE); COLOR,URINE LIGHT-YELLOW (YELLOW); GLUCOSE, URINE (UA) NEGATIVE (NEGATIVE); KETONES,URINE NEGATIVE (NEGATIVE); LEUKOCYTE ESTERASE ,URINE NEGATIVE Leu/uL (NEGATIVE); NITRATE,URINE NEGATIVE (NEGATIVE); OCCULT BLOOD,URINE NEGATIVE (NEGATIVE); PROTEIN,URINE NEGATIVE (NEGATIVE); UROBILINOGEN,URINE 0.2 mg/dL (0.2-1.0)
[2023-10-23 10:11] LABS: ADD UA MICROSCOPIC NO
[2023-10-23 10:21] LABS: BASOPHILS # (AUTO) 0.03 K/uL (0.00-0.20); BASOPHILS % (AUTO) 0.3 % (0.0-5.0); EOSINOPHILS # (AUTO) 0.25 K/uL (0.00-0.70); EOSINOPHILS % (AUTO) 2.1 % (0.0-8.0); HEMATOCRIT 45.6 % (42-54); IMMATURE GRANULOCYTE ABSOLUTE 0.04 K/uL (0-1); LYMPHOCYTES # (AUTO) 4.8 K/uL (1.0-4.8); MEAN CORPUSCULAR HEMOGLOBIN 29.9 pg (27.0-33.0); MEAN CORPUSCULAR HGB CONC 33.3 g/dL (32.0-36.0); MEAN CORPUSCULAR VOLUME 89.6 fL (79-99); MONOCYTES # (AUTO) 0.9 K/uL (0.1-1.0); MONOCYTES % (AUTO) 7.7 % (3.0-13.0); NEUTROPHILS # (AUTO) 5.7 K/uL (1.8-7.7); NEUTROPHILS % (AUTO) 48.6 % (40.0-77.0); PLATELET COUNT (AUTO) 183 K/uL (130-400); RED BLOOD CELL COUNT(AUTO) 5.09 MIL/uL (4.50-6.20); RED CELL DISTRIBUTION WIDTH 12.4 % (11.0-15.5); WHITE BLOOD COUNT (AUTO) 11.8 K/uL (4.8-10.8)
[2023-10-23] MEDS ORDERED: 0.9%NACL 1000ML 1,000 ML IV ONE (10:30)
[2023-10-23 10:32] LABS: POTASSIUM 3.7 mmol/L (3.5-5.1)
[2023-10-23 10:36] LABS: ALBUMIN 3.9 g/dL (3.5-5.0); BILIRUBIN,TOTAL 0.9 mg/dL (0.2-1.0)
[2023-10-23] MEDS ORDERED: IOHEXOL-350 75 ML VIAL IV ONE (11:08)
[2023-10-23 11:26] VITALS: PULSE 88; RESP 20; O2SAT 99
[2023-10-23 11:32] LABS: BASOPHILS % (MANUAL) 1 % (0-2); LYMPHOCYTES % (MANUAL) 34 % (22-44); MAN.DIFF COMMENT-IMPRESSION MANUAL DIFFERENTIAL; MONOCYTES % (MANUAL) 8 % (2-9); REACTIVE LYMPHOCYTES 4 % (0-0); SEGMENTED NEUTROPHILS % 53 % (40-70); TOTAL CELLS COUNTED 100; WBC MORPHOLOGY SMUDGE CELLS 2+
[2023-10-23 11:33] LABS: PLATELET MORPHOLOGY COMMENT ADEQUATE
== END 2023-10-23 14:03 | disposition home or self-care (01) ==
LOC: EDH 09:04
DX: K44.9 Diaphragmatic hernia without obstruction or gangrene (principal); R10.84 Generalized abdominal pain; I10 Essential (primary) hypertension
CPT/HCPCS: 99285; 74177; 96374; 76700; 96375; 80053; 83690; 85025; 81003; 36415; J3490; J1885; Q9967

== ENCOUNTER 2024-11-25 08:18 | Day surgery (SDC) | payer OTHER ==
[2024-11-23 15:37] LABS: BASOPHILS # (AUTO) 0.04 K/uL (0.00-0.20); BASOPHILS % (AUTO) 0.3 % (0.0-5.0); EOSINOPHILS # (AUTO) 0.24 K/uL (0.00-0.70); HEMATOCRIT 48.2 % (42-54); IMMATURE GRANULOCYTE ABSOLUTE 0.04 K/uL (0-1); LYMPHOCYTES # (AUTO) 5.4 K/uL (1.0-4.8); LYMPHOCYTES % (AUTO) 45.4 % (21.0-51.0); MEAN CORPUSCULAR HGB CONC 32.8 g/dL (32.0-36.0); MEAN CORPUSCULAR VOLUME 91.5 fL (79-99); MONOCYTES # (AUTO) 0.6 K/uL (0.1-1.0); MONOCYTES % (AUTO) 5.3 % (3.0-13.0); NEUTROPHILS # (AUTO) 5.6 K/uL (1.8-7.7); NEUTROPHILS % (AUTO) 46.7 % (40.0-77.0); PLATELET COUNT (AUTO) 230 K/uL (130-400); RED BLOOD CELL COUNT(AUTO) 5.27 MIL/uL (4.50-6.20); RED CELL DISTRIBUTION WIDTH 12.5 % (11.0-15.5)
[2024-11-23 15:50] LABS: CREATININE 1.4 mg/dL (0.5-1.3); POTASSIUM 4.2 mmol/L (3.5-5.1)
[2024-11-23 16:03] VITALS: BP 153/63; PULSE 65; RESP 18; TEMP 98.2
--- NOTE | 2024-11-24 15:28 | NUR ---
RE: LABS REPORTED WBC 12.[address] KINGSTON (PATIENT ASYMPTOMATIC). NO NEW ORDERS RECEIVED. REPORTED BMP RESULTS TO DR JARVIS, NO NEW ORDERS RECEIVED.
[~2024-11-25] VITALS: Ht 188 cm; Wt 159.7 kg
[2024-11-25] VITALS (7 sets, daily range): BP systolic 123–171; BP diastolic 60–77; PULSE 67–86; RESP 14–16; TEMP 97.4–98.1
[~2024-11-25 08:18] MED LIST changes: +ATOR40TA69 PO; -ATOR40TA71 PO; +HYDR25TA PO; +LISI40TA9 PO; -METF-444 PO; +NAPR-1506 PO; +OMEP40CA21 PO; +SEMA2PEN SQ; +TIZA4CAP8 PO; +TOPI100T37 PO; -TOPI25TA48 PO
--- NOTE | 2024-11-25 09:04 | EKG ---
[facility] Test Date: 2024-11-25 Test Time: 09:40:29 Pat Name: JERONIMO MIDDLETON Department: [facility] Room: [facility] Gender: M Dynamometer Tuner: [id number] : 1960 Requested By: KAVITA KINGSTON Order Number: [id number] Reading MD: Rick Pennington Measurements Intervals [place] Rate: 81 P: 0 DE: 0 QRS: 30 QRSD: 76 T: -1 QT: 379 QTc: 441 Interpretive Statements Atrial fibrillation Compared to ECG 01/25/2023 08:50:54 Sinus rhythm no longer present Electronically Signed On 11-27-2024 17:34:40 BLANKET WINDER HELPER by Rick Pennington Please click the below link to view image of tracing.
[2024-11-25] MEDS ORDERED: proPOFol 10 MG/ML 20ML VIAL IV ONE (10:52)
[2024-11-25] MEDS ORDERED: SUCCINYLCHOLINE CHLORIDE 20 MG/ML 10 ML VIAL ONE (10:52)
--- NOTE | 2024-11-25 12:37 | PRN ---
Procedure Note Date of procedure: 10/25/2024 Diagnosis: Persistent atrial fibrillation Procedure: Cardioversion The patient was brought to the day patient area in a fasting state. Anesthesia was provided by the anesthesia service. Cardioversion was performed with a synchronized shock at 200 joules resulting in sinus rhythm. The patient tolerated the procedure well. Final diagnosis: Persistent atrial fibrillation, status post successful cardioversion Disposition: The patient will be discharged later today and will follow up with me in the office in approximately two weeks. KAVITA KINGSTON MD Nov 25, 2024 12:37
--- NOTE | 2024-11-26 07:00 | EKG ---
[facility] Test Date: 2024-11-25 Test Time: 12:15:00 Pat Name: JERONIMO MIDDLETON Department: [facility] Room: [facility] Gender: Male Anaesthetic Technician: [id number] : 1960 Requested By: KAVITA KINGSTON Order Number: [id number] Reading MD: Rick Pennington Measurements Intervals [place] Rate: 76 P: 55 MT: 184 QRS: 38 QRSD: 79 T: 15 QT: 392 QTc: 443 Interpretive Statements Sinus rhythm Compared to ECG 11/25/2024 09:40:29 Atrial fibrillation no longer present Electronically Signed On 11-27-2024 17:35:17 RENAL DIETITIAN by Rick Pennington Please click the below link to view image of tracing.
== END 2024-11-25 12:35 | disposition home or self-care (01) ==
LOC: DAH 08:18
PROVIDERS: ATTEND Internal Medicine Cardiovascular Disease
DX: I48.19 Other persistent atrial fibrillation (principal); I10 Essential (primary) hypertension; I25.10 Atherosclerotic heart disease of native coronary artery without angina pectoris; G47.33 Obstructive sleep apnea (adult) (pediatric); E78.5 Hyperlipidemia, unspecified; Z79.01 Long term (current) use of anticoagulants; Z98.890 Other specified postprocedural states; Z79.899 Other long term (current) drug therapy; Z99.89 Dependence on other enabling machines and devices; Z96.659 Presence of unspecified artificial knee joint
CPT/HCPCS: 80048; 85025; 36415; 92960; 93005 ×2; A4223 ×3; J0330; J2704; A4620; A4215; A4222; A4221; A4663; A4216; A4606; J3490

== ENCOUNTER → 2025-01-02 | Outpatient (CLI) | payer OTHER ==
--- NOTE | 2025-01-03 18:13 | HMCSR ---
APPROVED REPORT EXAM: Two-dimensional and M-mode echocardiogram with Doppler and color Doppler. INDICATION ICD: I48.19 2D Dimensions IVSd1.2 (0.7-1.1cm)LVEF(%)59.0 (>50%)LVEF(%, simp.)64 % LVDd4.8 (3.8-5.6cm)FS(%)31 %LA ESV INDEX (BP)30.72 mL/m2 PWd1.2 (0.7-1.1cm)LA (2D)5.0 (1.6-4.0cm) IVSs1.2 cmAo Root(2D)3.7 (2.0-3.7cm) LVDs3.3 (2.5-4.0cm)LVOT diam2.5 (1.8-2.4cm) PWs1.9 cm M-Mode Dimensions EPSS0.8 cm LA (MM)5.2 (1.6-4.0cm) Ao Root(MM)4.0 (2.0-3.7cm) Aortic Valve AoV Vmax1.3 m/Maegan Peak GR6.7 mmHgLVOT Vmax1.2 m/s AoV VTI0.2 mAo Mean GR3.6 mmHgLVOT VTI0.23 m JENA (VMAX)4.5 cm2AVA (VTI) 4.5 cm2 Mitral Valve MV E Vmax72.6 cm/sDECEL Mjds196 ms MV A Vmax63.4 cm/sP 1/2 T40 ms E/A ratio1.1MVA (PHT)5.6 cm2 TDI E/E' Medial8.1E/E' Lateral8.1 Medial E' Peak V9.00 cm/sLateral E' Peak V9.00 cm/s Pulmonary Valve PV Vmax1.2 m/s Tricuspid Valve TR Vmax1.8 m/sRVSP11.7 mmHg TR Peak GR14.3 mmHg Left Ventricle The left ventricle is normal size. There is normal LV segmental wall motion. There is normal left jesus tricular wall thickness. LVEF is 60-65%. The left ventricular diastolic function is normal. Right Ventricle The right ventricle is normal size. The right ventricular systolic function is normal. Atria The left atrium size is normal. The right atrium is moderately dilated. Aortic Valve The aortic valve is normal in structure. No aortic regurgitation is present. There is no aortic valvu lar stenosis. Mitral Valve The mitral valve is normal in structure. There is trace of mitral valve regurgitation noted. There is no mitral valve stenosis. Tricuspid Valve The tricuspid valve is normal in structure. There is trace of tricuspid valve regurgitation noted. Pulmonic Valve The pulmonary valve is normal in structure. There is no pulmonic valvular regurgitation. Great Vessels The aortic root is normal in size. The IVC is normal in size and collapses >50% with inspiration. Pericardium There is no pericardial effusion. Other Information Quality : Adequate Conclusion LVEF is 60-65%.
== END | disposition home or self-care (01) ==
LOC: SHCH 13:37
PROVIDERS: ATTEND Internal Medicine Cardiovascular Disease
DX: I51.7 Cardiomegaly (principal); I48.19 Other persistent atrial fibrillation
CPT/HCPCS: 93306

== ENCOUNTER → 2025-05-25 | Outpatient (CLI) | payer OTHER ==
[~2025-05-25] MED LIST changes: +IOHEXOL 350 MG/ML 100ML INFUS..BTL IV ONE; +IOHEXOL-350 50ML VIAL IV ONE; +LISI40TA15 PO; -LISI40TA9 PO; +METO-408 PO; +TOPI-258 PO; -TOPI100T37 PO
--- NOTE | 2025-05-25 16:38 | HMCIMG ---
EXAM: CTA Chest with Intravenous Contrast CLINICAL HISTORY: 64-year-old male persistent atrial fibrillation. TECHNIQUE: Axial CTA images of the chest with intravenous contrast. Three-dimensional MIP/volume rendered reformations were performed. Dose reduction technique was used including one or more of the following: automated exposure control, adjustment of mA and kV according to patient size, and/or iterative reconstruction. CONTRAST: Omnipaque 350, 130 mL COMPARISON: CTA Chest dated 08/24/2020, 09:23 AM FINDINGS: PULMONARY ARTERIES: There is no intraluminal filling defect suspicious for PE. AORTA: No thoracic aortic aneurysm or dissection. LUNGS: Atelectasis in the lung bases. No pulmonary mass. No focal airspace consolidation. PLEURAL SPACES: No pleural effusion. No pneumothorax. HEART AND MEDIASTINUM: No cardiomegaly. No significant pericardial effusion. Mediastinal and hilar lymph nodes seen. LYMPH NODES: Small submandibular lymph nodes. BONES: Mild degenerative changes of the thoracic spine. No acute fracture. CHEST WALL AND UPPER ABDOMEN: Images through the upper abdomen are unremarkable. The chest wall is unremarkable. IMPRESSION: 1. No evidence of pulmonary embolism. 2. No thoracic aortic aneurysm or dissection. Findings similar to prior CTA Chest dated 08/24/2020, 09:23 AM /[place]
--- NOTE | 2025-05-26 09:33 | NUR ---
ABNORMAL WBC: DR. KINGSTON MADE AWARE OF WBC 12.5. ORDERS GIVEN TO REPEAT IN AM.
== END | disposition home or self-care (01) ==
LOC: RAH 08:19
PROVIDERS: ATTEND Internal Medicine Cardiovascular Disease
DX: J98.11 Atelectasis (principal); I48.19 Other persistent atrial fibrillation; M47.814 Spondylosis without myelopathy or radiculopathy, thoracic region
CPT/HCPCS: 71275; Q9967 ×2

== ENCOUNTER 2025-05-27 05:59 | Day surgery (SDC) | payer OTHER ==
[2025-05-25 09:27] VITALS: BP 130/84; PULSE 87; RESP 17; TEMP 97.4
[2025-05-25 09:55] LABS: IMMATURE GRANULOCYTE ABSOLUTE 0.03 K/uL (0-1); NUCLEATED RED BLOOD CELLS 0.0 % (0.0-0.19); PLATELET COUNT (AUTO) 229 K/uL (130-400); RED BLOOD CELL COUNT(AUTO) 5.39 MIL/uL (4.50-6.20); RED CELL DISTRIBUTION WIDTH 12.5 % (11.0-15.5); WHITE BLOOD COUNT (AUTO) 12.5 K/uL (4.8-10.8)
[2025-05-25 10:01] LABS: CREATININE 1.2 mg/dL (0.5-1.3); GLOMERULAR FILTR. RATE CALC 68.0 mL/min (>90); GLUCOSE,RANDOM 92.0 mg/dL (70-105); SODIUM SERUM 138.0 mmol/L (136-145); UREA NITROGEN, BLOOD 16.0 mg/dL (7-18)
[2025-05-25 10:04] LABS: INR 1.07 (0.85-1.15)
--- NOTE | 2025-05-25 10:20 | EKG ---
[facility] Test Date: 2025-05-25 Test Time: 09:18:43 Pat Name: JERONIMO MIDDLETON Department: [facility] Room: Gender: M Ladies Attendant: [id number] : 1960 Requested By: KAVITA KINGSTON Order Number: [id number] Reading MD: Miguel Yanes Measurements Intervals [place] Rate: 70 P: 0 AL: 0 QRS: 20 QRSD: 77 T: -71 QT: 391 QTc: 421 Interpretive Statements Atrial fibrillation Compared to ECG 11/25/2024 12:15:00 Sinus rhythm no longer present Electronically Signed On 05-25-2025 15:03:24 CDT by Miguel Yanes Please click the below link to view image of tracing.
[2025-05-25 12:55] LABS: EOSINOPHILS % (MANUAL) 3 % (1-6); LYMPHOCYTES % (MANUAL) 46 % (22-44); MONOCYTES % (MANUAL) 4 % (2-9); REACTIVE LYMPHOCYTES 3 % (0-0); SEGMENTED NEUTROPHILS % 44 % (40-70)
[2025-05-25 12:56] LABS: MAN.DIFF COMMENT-IMPRESSION MANUAL DIFFERENTIAL; PLATELET MORPHOLOGY COMMENT ADEQUATE; WBC MORPHOLOGY REACTIVE LYMPHS 1+
[~2025-05-27] VITALS: Ht 188 cm; Wt 154.3 kg
[2025-05-27] VITALS (17 sets, daily range): BP systolic 94–140; BP diastolic 50–69; PULSE 67–73; RESP 12–20; TEMP 97.6–98.2
[~2025-05-27 05:59] MED LIST changes: -IOHEXOL 350 MG/ML 100ML INFUS..BTL IV ONE; -IOHEXOL-350 50ML VIAL IV ONE; -NAPR-1506 PO
[2025-05-27 06:44] LABS: NUCLEATED RED BLOOD CELLS 0.2 % (0.0-0.19); PLATELET COUNT (AUTO) 218.0 K/uL (130-400); RED BLOOD CELL COUNT(AUTO) 5.01 MIL/uL (4.50-6.20); RED CELL DISTRIBUTION WIDTH 12.5 % (11.0-15.5); WHITE BLOOD COUNT (AUTO) 10.2 K/uL (4.8-10.8)
[2025-05-27] MEDS: 0.9%NACL 1000ML 1,000 ML IV ONE (06:45)
[2025-05-27] MEDS ORDERED: LIDOCAINE PF 100MG/5ML (2%) SYRINGE 5ML IVP ONE (06:47)
[2025-05-27] MEDS ORDERED: HEParin-NS 1,000 UNIT/500 ML 1,000 ML IV ONE (07:36)
[2025-05-27] MEDS ORDERED: LIDOCAINE HCL 400MG/20ML VIAL ONE (07:36)
[2025-05-27] MEDS ORDERED: SODIUM BICARB 50MEQ 50ML VIAL 50 ML ONE (07:36)
[2025-05-27] MEDS ORDERED: SUGAMMADEX SODIUM 200 MG/2 ML VIAL IV ONE (13:09)
[2025-05-27] MEDS ORDERED: SUCR1ORA15 PO (13:34)
[2025-05-27] MEDS ORDERED: PANT40TA55 PO (13:34)
--- NOTE | 2025-05-27 13:50 | NUR ---
REPORT RECEIVED PAPER REPORT FROM GIA VILLAGOMEZ IN NURSE'S STATION.
[2025-05-27] MEDS: SUCRALFATE 1 GM/10 ML PO ONE (14:56)
--- NOTE | 2025-05-27 15:35 | EKG ---
[facility] Test Date: 2025-05-27 Test Time: 14:45:37 Pat Name: JERONIMO MIDDLETON Department: [facility] Room: [facility] Gender: M Desk Director: [id number] : 1960 Requested By: KAVITA KINGSTON Order Number: [id number] Reading MD: Claus Neal Measurements Intervals [place] Rate: 70 P: 19 HI: 188 QRS: 26 QRSD: 80 T: 11 QT: 435 QTc: 470 Interpretive Statements Sinus rhythm Compared to ECG 05/25/2025 09:18:43 Atrial fibrillation no longer present Electronically Signed On 05-29-2025 19:47:39 CDT by Claus Neal Please click the below link to view image of tracing.
== END 2025-05-27 16:09 | disposition home or self-care (01) ==
LOC: DAH 05:59
PROVIDERS: ATTEND Internal Medicine Cardiovascular Disease
DX: I48.19 Other persistent atrial fibrillation (principal); I10 Essential (primary) hypertension; I25.10 Atherosclerotic heart disease of native coronary artery without angina pectoris; K21.9 Gastro-esophageal reflux disease without esophagitis; Z79.01 Long term (current) use of anticoagulants; Z79.899 Other long term (current) drug therapy; E78.5 Hyperlipidemia, unspecified; Z96.659 Presence of unspecified artificial knee joint; Z98.890 Other specified postprocedural states
CPT/HCPCS: 80048; 85025; 85610; 85730; 36415 ×2; 93005 ×2; 93656; 93657; 85347 ×9; 85027; C1769; C1894 ×3; C1732 ×3; A4649 ×2; C1760; C1766; J3010 ×4; J3490 ×4; J7030; J2003; J2720; J1644 ×4; J2250; J2704; J2371 ×2; A4215; A4222; A4221; A4663; A4216; A4606; A4223 ×3